=== PATIENT | male | born 1990 | race Caucasian/White ===

== ENCOUNTER 2019-08-26 07:25 | Emergency (ER) | payer OTHER ==
[2019-08-26 07:31] LABS: Glucose,Whole Blood 89 mg/dL (75-99)
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
== END 2019-08-26 07:35 | disposition left against medical advice (07) ==
LOC: EC 07:25
DX: R51 Headache (principal); M25.561 Pain in right knee; M54.9 Dorsalgia, unspecified; M79.89 Other specified soft tissue disorders; V89.2XXA Person injured in unspecified motor-vehicle accident, traffic, initial encounter; Y92.410 Unspecified street and highway as the place of occurrence of the external cause
CPT/HCPCS: 36415; 99284